=== PATIENT | male | born 1970 | race Caucasian/White ===

== ENCOUNTER 2025-02-03 09:22 | Emergency (ER) | payer OTHER | END 2025-02-03 10:09 | disposition left against medical advice (07) | LOC: ER 09:50 | DX: R06.02 Shortness of breath (principal); R07.89 Other chest pain; E11.9 Type 2 diabetes mellitus without complications; F17.210 Nicotine dependence, cigarettes, uncomplicated | CPT/HCPCS: 99282 ==